=== PATIENT | female | born 1960 | race Caucasian/White ===

== ENCOUNTER 2016-07-14 22:04 | Emergency (ER) | payer OTHER ==
[~2016-07-14 22:04] MED LIST: CYMBALTA60 MG PO; FLEXERIL10 MG PO; GABAPENTIN800 MG PO; H PO; IBUPROFEN200 MG PO; NORCO 5/325 TAB1 TAB PO; PERCOCET 5/3251 TAB PO; VICODIN 5/500 T1 TAB PO
[2016-07-14] MEDS ORDERED: ULTRAM50 M1 PO (22:25)
[2016-07-15] MEDS ORDERED: NORCO 5-325 TA1 EACH PO (00:24)
[2016-07-15] MEDS ORDERED: CYCLOBENZAPRINE10 M1 PO (00:24)
== END 2016-07-15 00:24 ==
LOC: EDMED 22:04
DX: S46.912A Strain of unspecified muscle, fascia and tendon at shoulder and upper arm level, left arm, initial encounter (principal); X58.XXXA Exposure to other specified factors, initial encounter
CPT/HCPCS: J2270